=== PATIENT | male | born 1940 | race Caucasian/White ===

== ENCOUNTER 2018-12-24 09:21 | Day surgery (SDC) | payer OTHER ==
[~2018-12-24] VITALS: Ht 175.3 cm; Wt 88.8 kg
[~2018-12-24 09:21] MED LIST: Adult Low Dose81 MG PO; CALCAVITD PO; COMPLETE OMEGA1 EACH PO; GLUC500 PO; LOSARTAN POTAS100 MG PO; METF500C PO; Multiple Vitam1 EAC1 PO; OSTEO BI-FLEX1 EAC2 PO; Saw Palmetto C1 EACH PO; TAMS.4ER PO; TRIA80TC TOP
== END 2018-12-24 11:23 | disposition home or self-care (01) ==
LOC: ORSCSDS 09:21
PROVIDERS: Internal Medicine Gastroenterology
PROC: 0DBM8ZX Excision of Descending Colon, Via Natural or Artificial Opening Endoscopic, Diagnostic (ICD-10-PCS; principal; 2018-12-24 10:45)
DX: Z12.11 Encounter for screening for malignant neoplasm of colon (principal); D12.4 Benign neoplasm of descending colon; Z86.010 Personal history of colon polyps; K57.30 Diverticulosis of large intestine without perforation or abscess without bleeding; E11.9 Type 2 diabetes mellitus without complications; Z87.891 Personal history of nicotine dependence; Z79.82 Long term (current) use of aspirin; Z79.84 Long term (current) use of oral hypoglycemic drugs; Z79.899 Other long term (current) drug therapy
CPT/HCPCS: 82947; 88305; J2704; J7120

== ENCOUNTER → 2020-07-16 | Outpatient (CLI) | payer OTHER | END | disposition home or self-care (01) | LOC: LAB SHORT 17:17 → LAB EV 17:17 | DX: N48.9 Disorder of penis, unspecified (principal) | CPT/HCPCS: 87070; 87205; 87529 ==

== ENCOUNTER → 2020-09-17 | Outpatient (CLI) | payer OTHER | LOC: LAB SHORT 10:28 → PLD 10:28 | DX: E11.9 Type 2 diabetes mellitus without complications (principal) | CPT/HCPCS: 82043 ==

== ENCOUNTER → 2021-03-16 | Outpatient (CLI) | payer OTHER ==
[2021-03-16 19:25] LABS: Prostate Specific Antigen 0.606 ng/mL (0.000-4.000)
== END ==
LOC: LAB SHORT 18:01
PROVIDERS: Hospitalist
DX: Z12.5 Encounter for screening for malignant neoplasm of prostate (principal); Z88.8 Allergy status to other drugs, medicaments and biological substances; Z91.048 Other nonmedicinal substance allergy status
CPT/HCPCS: G0103

== ENCOUNTER → 2021-10-04 | Outpatient (CLI) | payer OTHER ==
[2021-10-06 01:10] LABS: BASO (ABSOLUTE) 0.1 x10E3/uL (0.0-0.2); BASOS 1 % (Not Estab.); EOS 2 % (Not Estab.); EOS (ABSOLUTE) 0.1 x10E3/uL (0.0-0.4); HEMATOCRIT 45.2 % (37.5-51.0); HEMOGLOBIN 15.2 g/dL (13.0-17.7); IMMATURE GRANULOCYTES 0 % (Not Estab.); LYMPHS 24 % (Not Estab.); LYMPHS (ABSOLUTE) 1.5 x10E3/uL (0.7-3.1); MCHC 33.6 g/dL (31.5-35.7); MCV 92 fL (79-97); MONOCYTES 9 % (Not Estab.); MONOCYTES(ABSOLUTE) 0.6 x10E3/uL (0.1-0.9); NEUTROPHILS 64 % (Not Estab.); NEUTROPHILS (ABSOLUTE) 3.9 x10E3/uL (1.4-7.0); PLATELETS 215 x10E3/uL (150-450); RBC 4.91 x10E6/uL (4.14-5.80); RDW 12.4 % (11.6-15.4)
[2021-10-06 04:10] LABS: A/G RATIO 1.5 (1.2-2.2); BILIRUBIN, TOTAL 0.8 mg/dL (0.0-1.2); CALCIUM, SERUM 9.3 mg/dL (8.6-10.2); CREATININE, SERUM 1.08 mg/dL (0.76-1.27); GLOBULIN, TOTAL 2.8 g/dL (1.5-4.5); POTASSIUM, SERUM 4.6 mmol/L (3.5-5.2)
== END | disposition home or self-care (01) ==
LOC: LAB SHORT 13:27
PROVIDERS: Hospitalist
DX: I10 Essential (primary) hypertension (principal)
CPT/HCPCS: 80053; 85025

== ENCOUNTER → 2023-07-04 | Outpatient (CLI) | payer OTHER ==
[2023-07-04 14:36] LABS: BASOPHILS ABSOLUTE AUTO 0.04 K/mm3 (0.00-0.23); BASOPHILS PERCENT AUTO 1 % (0-2); EOSINOPHILS ABSOLUTE AUTO 0.08 K/mm3 (0.00-0.68); EOSINOPHILS PERCENT AUTO 1 % (0-6); Hematocrit 42.3 % (37.0-53.0); Hemoglobin 14.3 g/dL (13.5-17.5); IMMATURE GRAN ABSOLUTE AUTO 0.01 K/mm3 (0.00-0.10); IMMATURE GRAN PERCENT AUTO 0 % (0-1); LYMPHOCYTES ABSOLUTE AUTO 1.46 K/mm3 (0.84-5.20); LYMPHOCYTES PERCENT AUTO 25 % (21-46); MONOCYTES ABSOLUTE AUTO 0.58 K/mm3 (0.16-1.47); MONOCYTES PERCENT AUTO 10 % (4-13); Mean Corpuscular HGB 31.1 pg (26.0-34.0); Mean Corpuscular HGB Conc 33.8 g/dL (31.5-36.5); Mean Corpuscular Volume 92 fL (80-100); NEUTROPHILS ABSOLUTE AUTO 3.72 K/mm3 (1.96-9.15); NEUTROPHILS PERCENT AUTO 63 % (41-73); Platelet Count 201 K/mm3 (150-400); RDW Coefficient Variation 12.4 % (11.7-14.2); RDW Standard Deviation 42.2 fL (35.1-46.3); White Blood Cell Count 5.89 K/mm3 (4.00-11.30)
[2023-07-04 15:02] LABS: Alanine Aminotransfer (ALT/SGP 31 U/L (12-78); Albumin/Globulin Ratio 1.2 (0.8-1.8); Alk Phos 60 U/L (50-136); Anion Gap 4 mmol/L (6-16); Aspartate Aminotrans (AST/SGOT 16 U/L (12-37); Bilirubin, Total 1.2 mg/dL (0.1-1.0); Blood Urea Nitrogen 20 mg/dL (8-24); Bun/Creatinine Ratio 20.8 (12.0-20.0); CHOL/HDL RATIO 4.1; CO2, Blood 26 mmol/L (21-32); Calcium, Blood 9.1 mg/dL (8.5-10.1); Chloride, Blood 111 mmol/L (98-108); Cholesterol 147 mg/dL (50-200); Creatinine, Blood 0.96 mg/dL (0.60-1.20); Globulin, Blood 3.2 g/dL (2.2-4.0); Glomerular Filtration Rate 80 (60-); Glucose, Blood 103 mg/dL (70-99); HDL Cholesterol 36 mg/dL (>39); LDL/HDL RATIO 2.6; Low Density Lipoprotein Chol 93 mg/dL (0-110); Potassium, Blood 4.3 mmol/L (3.5-5.5); Prostate Specific Antigen 0.708 ng/mL (0.000-4.000); Sodium, Blood 141 mmol/L (136-145); Total Protein, Blood 7.2 g/dL (6.4-8.2); Triglycerides 91 mg/dL (30-160); Very Low Density Lipoprot Chol 18 mg/dL (6-32)
[2023-07-04 15:07] LABS: Microalb/Creat Ratio UR, Rand 12.346 mg/g (0.000-30.000)
== END ==
LOC: LAB SHORT 11:24 → LAB 11:24
PROVIDERS: Hospitalist
DX: E11.9 Type 2 diabetes mellitus without complications (principal); I10 Essential (primary) hypertension; N40.1 Benign prostatic hyperplasia with lower urinary tract symptoms
CPT/HCPCS: 80053; 80061; 82043; 82570; 83036; 84153; 85025

== ENCOUNTER 2024-03-28 08:40 | Day surgery (SDC) | payer OTHER ==
[~2024-03-28] VITALS: Ht 177.8 cm; Wt 79.3 kg
[~2024-03-28 08:40] MED LIST changes: +Lactated Ringer's 1,000 ML IV ONE; +Lidocaine 1%-Epineph 1:100000 20 ML MDV ONE; +Sodium Bicarb 8.4% 1 MEQ/ML 50 ML Vial ONE
[2024-03-28] MEDS ORDERED: LOSA50 PO (09:02)
[2024-03-28] MEDS ORDERED: Lactated Ringer's 1,000 ML IV ONE (09:16)
--- NOTE | 2024-03-28 09:25 | NUR ---
03[facility]28/24 0925 [facility]-OP INJECTION BY DR RAMOS 0905: PRE-OP INJECTION BY DR RAMOS OF 9 CC 1% LIDOCAINE WITH EPI 1:100,000 WITH 1 CC SODIUM BICARBONATE
[2024-03-28] MEDS ORDERED: FentaNYL Citrate 50 MCG/ML 2 ML Injection ONE (09:41)
[2024-03-28 10:17] VITALS: BP 141/63
== END 2024-03-28 10:17 | disposition home or self-care (01) ==
LOC: ORSCSDS 08:40
PROVIDERS: Orthopaedic Surgery
PROC: 01N54ZZ Release Median Nerve, Percutaneous Endoscopic Approach (ICD-10-PCS; principal; 2024-03-28 09:45)
DX: G56.03 Carpal tunnel syndrome, bilateral upper limbs (principal); E11.9 Type 2 diabetes mellitus without complications; I10 Essential (primary) hypertension; Z79.899 Other long term (current) drug therapy; Z79.84 Long term (current) use of oral hypoglycemic drugs; Z79.82 Long term (current) use of aspirin
CPT/HCPCS: 82947; J3010; J7120

== ENCOUNTER 2024-05-13 09:32 | Day surgery (SDC) | payer OTHER ==
[~2024-05-13] VITALS: Ht 175.3 cm; Wt 80.6 kg
[~2024-05-13 09:32] MED LIST changes: +LOSA50 PO; -Lidocaine 1%-Epineph 1:100000 20 ML MDV ONE; -Sodium Bicarb 8.4% 1 MEQ/ML 50 ML Vial ONE
[2024-05-13] MEDS ORDERED: Lactated Ringer's 1,000 ML IV ONE (09:46)
--- NOTE | 2024-05-13 09:47 | NUR ---
05/13/24 0947 ROSETTA BAE PRE OP INJECTION BY WITH 10CC ( 9CC OF 1% LIDOCAINE W/EPI 1:100,000 AND 1CC OF SODIUM BICARBONATE). PT TOLERATED INJECTION WELL. CALL LIGHT AT BEDSIDE.
[2024-05-13] MEDS ORDERED: PREVAGEN (09:50)
[2024-05-13] MEDS ORDERED: CeFAZolin Sodium 2,000 MG VIAL ONE (10:12)
[2024-05-13] MEDS ORDERED: NS 50 ML IV ONE (10:12)
[2024-05-13] MEDS ORDERED: propofoL 20 ML IV ONE ×2 (10:22)
[2024-05-13 10:42] VITALS: BP 122/69
--- NOTE | 2024-05-13 11:01 | NUR ---
05/13/24 1101 Janessa Diamond NO QUESTIONS OR CONCERNS. PT HAD OTHER HAND DONE A FEW WEEKS AGO. DAUGHTER DAVID TO [employer]NA[employer]IST PT. PT SITTING COMFORTALLY DRINKING COFFEE
== END 2024-05-13 11:06 | disposition home or self-care (01) ==
LOC: ORSCSDS 09:32
PROVIDERS: Orthopaedic Surgery
PROC: 01N54ZZ Release Median Nerve, Percutaneous Endoscopic Approach (ICD-10-PCS; principal; 2024-05-13 11:45)
DX: G56.02 Carpal tunnel syndrome, left upper limb (principal); E11.9 Type 2 diabetes mellitus without complications; N40.0 Benign prostatic hyperplasia without lower urinary tract symptoms; Z79.82 Long term (current) use of aspirin; Z79.84 Long term (current) use of oral hypoglycemic drugs; Z79.899 Other long term (current) drug therapy
CPT/HCPCS: J0690; J2704; J7120

== ENCOUNTER → 2024-06-26 | Outpatient (CLI) | payer OTHER ==
[~2024-06-26] MED LIST changes: -Lactated Ringer's 1,000 ML IV ONE; +PREVAGEN
[2024-06-26 16:34] LABS: Microalb/Creat Ratio UR, Rand 21.2 mg/g (0.000-30.000); Microalbumin, Random Urine 37.1 mg/L (0.000-20.000)
[2024-06-26 19:58] LABS: Anion Gap 9 mmol/L (3-11); Blood Urea Nitrogen 23 mg/dL (8-24); CO2, Blood 27 mmol/L (21-32); Calcium, Blood 9.3 mg/dL (8.5-10.1); Chloride, Blood 111 mmol/L (98-108); Cholesterol 139 mg/dL (50-200); Glucose, Blood 102 mg/dL (70-99); HDL Cholesterol 46 mg/dL (>39); LDL/HDL RATIO 1.7; Low Density Lipoprotein Chol 78 mg/dL (0-110); Potassium, Blood 4.5 mmol/L (3.5-5.5); Sodium, Blood 142 mmol/L (136-145); Triglycerides 74 mg/dL (30-160); Very Low Density Lipoprot Chol 14 mg/dL (6-32)
[2024-06-26 19:59] LABS: Bun/Creatinine Ratio 25.1 (12.0-20.0); Creatinine, Blood 0.92 mg/dL (0.60-1.20); Glomerular Filtration Rate 84 (60-)
== END ==
LOC: LAB SHORT 12:59 → LAB 12:59
PROVIDERS: Hospitalist
DX: E11.9 Type 2 diabetes mellitus without complications (principal); I10 Essential (primary) hypertension
CPT/HCPCS: 80048; 80061; 82043; 82570; 83036

== ENCOUNTER → 2025-04-21 | Outpatient (CLI) | payer OTHER ==
[2025-04-21 16:05] LABS: Anion Gap 6.0 mmol/L (3-11); Blood Urea Nitrogen 16.0 mg/dL (8-24); CO2, Blood 29.0 mmol/L (21-32); Calcium, Blood 8.7 mg/dL (8.5-10.1); Chloride, Blood 108.0 mmol/L (98-108); Creatinine, Blood 0.73 mg/dL (0.60-1.20); Glucose, Blood 92.0 mg/dL (70-99); Potassium, Blood 4.1 mmol/L (3.5-5.5); Sodium, Blood 139.0 mmol/L (136-145)
[2025-04-21 20:45] LABS: Creatinine, Urine Random 199.0 mg/dL (27.00-270.00); Microalb/Creat Ratio UR, Rand 7.789 mg/g (0.000-30.000); Microalbumin, Random Urine 15.5 mg/L (0.000-20.000)
== END ==
LOC: LAB SHORT 08:50 → LAB 08:50
PROVIDERS: Hospitalist
DX: E11.9 Type 2 diabetes mellitus without complications (principal); I10 Essential (primary) hypertension
CPT/HCPCS: 80048; 82043; 82570